=== PATIENT | male | born 1960 | race Hispanic/Latino ===

== ENCOUNTER 2022-10-22 21:36 | Emergency (ER) | payer OTHER, SELFPAY ==
[2022-10-22] VITALS (7 sets, daily range): BP systolic 135–158; BP diastolic 76–99; PULSE 61–69; RESP 13–19; TEMP 36.1; O2SAT 100
--- NOTE | ~2022-10-22 | XR_ITS ---
EXAMINATION: XR chest 2V DATE: 10/22/2022 22:20 INDICATION: Mid chest pain post fall TECHNIQUE: PA and lateral views of the chest were obtained. COMPARISON: None FINDINGS: The lungs are clear with no focal airspace opacities, pulmonary edema, pleural effusion or pneumothor ax. Heart size is normal. Tortuous thoracic aorta. Mild thoracic spondylosis. IMPRESSION: 1. No acute cardiopulmonary disease. Reviewed, dictated and finalized at location A.
--- NOTE | 2022-10-22 23:02 | ECG_ITS ---
Measurements Intervals [place] Rate: 66 P: 57 NC: 182 QRS: 1 QRSD: 107 T: 42 QT: 400 QTc: 421 Interpretive Statements SINUS RHYTHM BASELINE ARTIFACT- V3 NORMAL ECG NO PREVIOUS ECG AVAILABLE FOR COMPARISON Electronically Signed On 10-23-2022 6:58:37 CDT by Kali Aleman D.O.
[2022-10-23] VITALS: BP 128/70; PULSE 64; RESP 15
[2022-10-23 00:01] VITALS: PULSE 64; RESP 17
--- NOTE | 2022-10-23 00:01 | ED.GENADULT ---
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 Patient states that he was walking and dropped a pole that he was carrying which caused him to trip. He reports he fell onto his left side and had left frontal chest pain following this fall. Denies any head injury or LOC. Denies any further site of pain or injury. Denies numbness, weakness, shortness of breath. Related Data Allergies Allergy/AdvReac Type Severity Reaction Status Date / Time No Known Allergies Allergy Verified 10/22/22 23:05 Review of Systems Review of Systems: All systems as dictated in HPI Exam Narrative: GENERAL: Well-appearing, well-nourished, and in no acute distress. HEAD: Normocephalic, atraumatic. EYES: PERRLA and EOMI. ENT: Nares clear, no rhinorrhea or epistaxis. Mucous membranes moist. Oropharynx without tonsillar hypertrophy exudate or other lesions. NECK: Supple. No adenopathy or masses. CHEST: There is chest wall tenderness to the left upper chest. No crepitus. No respiratory distress. Clear to auscultation. No wheezes rales or rhonchi. 100% on room air. HEART: Regular rate and rhythm. No murmur heard. Normal peripheral pulses. ABDOMEN: Soft, nontender, nondistended, normal active bowel sounds. MSK: Normal range of motion. No edema. SKIN: Warm, dry, no rash. No bruising or wounds. NEURO: Alert and oriented x3. No focal deficits. PSYCH: Normal mood and affect. Course Vital Signs Vital signs: Vital Signs Temperature 97 F L 10/22/22 21:38 Pulse Rate 61 10/22/22 21:38 Respiratory Rate 18 10/22/22 21:38 Blood Pressure 158/99 H 10/22/22 21:38 Pulse Oximetry 100 10/22/22 21:38 Oxygen Delivery Room Air 10/22/22 21:38 Temperature 97 F L 10/22/22 21:38 Pulse Rate 64 10/23/22 00:01 Respiratory Rate 17 10/23/22 00:01 Blood Pressure 128/70 10/23/22 00:00 Pulse Oximetry 100 10/22/22 23:04 Oxygen Delivery Room Air 10/22/22 23:04 Medical Decision Making MDM Narrative Medical decision making narrative: This is a 61-year-old male who presents to the ED with chief complaint of left chest pain following a fall this evening. He tripped and fell on the left side. Vitals are normal. Exam does reveal tenderness of the chest wall on the left side. No crepitus. No bruising. Chest x-ray does not reveal any acute cardiopulmonary abnormalities. No overt rib fractures. I explained to the patient that I cannot reliably rule out a rib fracture without a CT scan, he would like to forego any further imaging at this point. He wants to go home and take Tylenol/motrin for pain. Incentive spirometer was given as he does have rib pain. Pt will be discharged in stable condition. Return precautions given and supportive measures discussed. Pt is understanding and agreeable with plan for discharge and follow-up with PCP. Vital Signs Vital Signs: Vital Signs Temperature 97 F L 10/22/22 21:38 Pulse Rate 61 10/22/22 21:38 Respiratory Rate 18 10/22/22 21:38 Blood Pressure 158/99 H 10/22/22 21:38 Pulse Oximetry 100 10/22/22 21:38 Oxygen Delivery Room Air 10/22/22 21:38 Temperature 97 F L 10/22/22 21:38 Pulse Rate 64 10/23/22 00:01 Respiratory Rate 17 10/23/22 00:01 Blood Pressure 128/70 10/23/22 00:00 Pulse Oximetry 100 10/22/22 23:04 Oxygen Delivery Room Air 10/22/22 23:04 ECG Data EKG #1: ECG completion date: 10/22/22 ECG completion time: 23:09 Prior ECG tracings: not available for review Interpretation: Normal sinus rhythm Rate 66 Normal QRS Normal QT No acute ischemic findings Discharge Plan Disc
== END 2022-10-23 00:46 | disposition home or self-care (01) ==
PROVIDERS: Emergency Provider Physician Assistant
DX: R07.81 Pleurodynia (principal); W01.0XXA Fall on same level from slipping, tripping and stumbling without subsequent striking against object, initial encounter
CPT/HCPCS: 71046; 93005; 99283

== ENCOUNTER 2024-11-06 13:42 | Emergency (ER) | payer MEDICARE, MEDICAID, SELFPAY ==
[2024-11-06 13:53] VITALS: BP 119/70; PULSE 65; RESP 16; TEMP 36.8; O2SAT 98
--- NOTE | 2024-11-06 14:05 | ED_ITS ---
HPI - Nausea/Vomiting/Diarrhea General Chief complaint: Nausea/Vomiting/Diarrhea Stated complaint: Abdominal Pain Time Seen by Provider: 11/06/24 13:46 Source: patient Mode of arrival: ambulatory Limitations: no limitations History of Present Illness HPI Narrative: Patient is a 63-year-old male who presents with heartburn and diarrhea for 2 days. Patient has not taken anything for symptoms. Denies any abdominal some tenderness for states his bowels are very active. Is able to eat and drink normally but then has diarrhea hours later. Denies any fever, chills, nausea, vomiting Related Data Home Medications ?Medication ?Instructions ?Recorded ?Confirmed ?Last Taken ?Type atorvastatin 40 mg tablet mg 11/06/24 Unknown History empagliflozin 25 mg tablet mg 11/06/24 Unknown Histor y (Jardiance) lisinopril 10 mg tablet mg 11/06/24 Unknown History loratadine 10 mg tablet mg 11/06/24 Unknown History metformin 1,000 mg tablet mg 11/06/24 Unknown History semaglutide 7 mg tablet (Rybelsus) mg PO 11/06/24 Unk nown History tamsulosin 0.4 mg capsule mg PO 11/06/24 Unknown Hist ory Allergies Allergy/AdvReac Type Severity Reaction Status Date / Time No Known Allergies Allergy Verified 11/06/24 13:47 Review of Systems Review of Systems: All systems reviewed & are unremarkable except as noted in HPI and below Constitutional: Constitutional: Denies body ache(s), Denies chills, Denies fatigue, Denies fever(s), Denies headache(s), Denies malaise and Denies weakness Eyes: Eyes: Denies blurry vision, Denies irritation and Denies loss of vision ENT: Denies otalgia, Denies headache(s), Denies nasal discharge, Denies sinus pain and Denies sore throat Cardiovascular: Cardiovascular: Denies chest pain, Denies irregular heart rhythm and Denies dyspnea Respiratory: Respiratory: Denies dyspnea Gastrointestinal: Gastrointestinal: Denies abdominal pain, Denies melena, Denies hematochezia, Reports heartburn, Reports diarrhea, Denies nausea and Denies vomiting Musculoskeletal: Musculoskeletal: Denies back pain, Denies myalgias and Denies arthralgias Integumentary/Breasts: Skin/Breast: Denies pruritus and Denies rash Neurologic: Denies headache(s), Denies loss of vision and Denies weakness Psychiatric: Psychiatric: Reports no additional psychiatric complaints Endocrine: Endocrine: Denies fatigue PMFSH Comments At time of signature, agree with nursing past medical, surgical, social and family history. There is no relevant family history pertinent to the presenting complaint. Exam Const: General: cooperative, healthy appearing, comfortable, no acute distress and well nourished Nutritional Appearance: well nourished Orientation/consciousness: patient oriented x3 Limitations: no limitations HENMT: Head: normal to inspection, normocephalic and atraumatic Ears: hearing grossly normal bilaterally and external ears normal Face/Nose/Sinus: Normal external nose present, normal facial exam and face symmetric Face and sinus: normal facial exam and face symmetric Mouth: Yes lip normal Eyes: General: appearance normal, both eyes and all related structures Alignment and Position: alignment normal and position normal Periorbital: periorbital findings normal Eyelids: eyelids normal Pupils: Equal, round and reactive pupils present EOM: EOMs intact bilaterally Neck: Neck: normal visual inspection, full ROM and supple Chest: Chest palpation & inspection: normal inspection of the chest Resp: Effort & Inspection: normal respiratory effort and able to speak in complete sentences Auscultation: clear to auscultation bilaterally Cardio: Rate: regular rate Rhythm: regular rhythm Heart sounds: S1 normal heart sound present and S2 normal heart sound present GI: Inspection: normal to inspection GI Palp: No abdominal tenderness, Yes Soft to palpation, No Firmness to palpation present (GI), No Tenderness to palpation present (GI) and No Guarding due to palpation present (GI) Auscultation: Hyperactive bowel sounds present Skin: General skin exam: normal color and no rashes or lesions noted Neuro: General: patient oriented x3 and moves all extremities Cranial nerves: Yes Equal, round and reactive pupils present Speech: normal speech Gait exam (Neuro): Normal gait present Extrem: General: normal to inspection, full ROM and no edema Psych: Appearance: grossly normal and well kempt Mental Status: mental status grossly normal Speech and movement: Normal speech and movement present Affect: normal affect Attitude: cooperative Thought process: Normal thought process present Course Course Emergency Course: Patient is aware of diagnosis, understands and agrees to treatment plan. Anticipatory guidance given. Patient agrees to follow-up as directed and is aware of reasons to seek care at the emergency department. Portions of this record may have been created with voice recognition software Level of Care: Express Care Visit Vital Signs Vital signs: Vital Signs Temperature 36.8 C 11/06/24 13:53 Pulse Rate 65 11/06/24 13:53 Respiratory Rate 16 11/06/24 13:53 Blood Pressure 119/70 11/06/24 13:53 Pulse Oximetry 98 11/06/24 13:53 Oxygen Delivery Room Air 11/06/24 13:53 Temperature 36.8 C 11/06/24 13:53 Pulse Rate 65 11/06/24 13:53 Respiratory Rate 16 11/06/24 13:53 Blood Pressure 119/70 11/06/24 13:53 Pulse Oximetry 98 11/06/24 13:53 Oxygen Delivery Room Air 11/06/24 13:53 Reviewed MDM - Nausea/Vomiting/Diarrhea MDM Narrative Medical decision making narrative: Will send in medication to treat both heartburn and abdominal cramping. Referred patient to over the counter Imodium. Pt well hydrated appearing, in no respiratory distress, hemodynamically stable. Recommend supportive care. The patient is stable at time of discharge the clinical impression was discussed and the patient was given the opportunity to ask questions, which were addressed as completely as possible given the inf ormation available at present. Anticipatory guidance and return to care precautions were discussed and the importance of primary care follow-up was stressed and encouraged. The patient voiced understanding of the plan, indications to return, and the need for follow-up. Exam findings show no acute concerns or changes Patient is appropriate for outpatient treatment and follow-up. Differential Diagnosis Differential diagnosis: Likely food poisoning, gastroenteritis and dehydration Medical Records Attestation: I reviewed the patient's medical records. Discharge Plan Discharge Clinical Impression: Gastroenteritis, Acid reflux Patient Disposition: Home Condition: Stable Instructions: Gastritis (ED), Gastroenteritis (ED) Additional Instructions: Take medication as prescribed. You may use [id number] Imodium to decrease diarrhea episodes. Stay hydrated. Take small sips of fluid containing electrolytes frequently(Body [place], Gatorade, Powerade, liquid IV). Eat small meals that her very bland including bananas, applesauce, rice, toast, boiled or grilled chicken, soup. Do not eat anything fried, spicy or overly acidic. You should go to the hospital if you experience return of persistent nausea and vomiting that does not resolve and does not allow you to tolerate any food or fluids, persistent fevers for greater than 2-3 more days, increasing abdominal pain that persists despite medications, persistent diarrhea, dizziness, syncope (fainting), or for any other concerns. [place] los medicamentos seg?n lo prescrito. Puede usar Imodium de venta laura para disminuir los episodios de diarrea. Mant?ngase hidratado. [place] romario?os sorbos de l?quidos con electrolitos con frecuencia (Body [place], Gatorade, Powerade, wan l?quido). Coma comidas romario?as zabrina muy blandas, ubaldo pl?tanos, pur? de manzana, arroz, tostadas, guillermo hervido o a la plancha, sopa. No coma nada frito, picante ni demasiado ?cido. Debe acudir al hospital si experimenta n?useas y v?mitos persistentes que no se alivian y no le permiten tolerar alimentos ni l?quidos, fiebre persistente xavier m?s de 2 o 3 d?as, aumento del dolor abdominal que persiste a pesar de los medicamentos, diarrea persistente, mareos, s?ncope (desmayo) o cualquier otra inquietud. Patient Language: German Prescriptions: New dicyclomine 20 mg tablet 20 mg PO QID 7 Days Qty: 28 0RF omeprazole 20 mg capsule,delayed release(DR/EC) 20 mg PO DAILY 14 Days Qty: 14 0RF No Action atorvastatin 40 mg tablet tamsulosin 0.4 mg capsule PO metformin 1,000 mg tablet lisinopril 10 mg tablet loratadine 10 mg tablet Jardiance 25 mg tablet Rybelsus 7 mg tablet PO Follow-up/Referrals: Dong Oliver MD [Physician, Family Practice] - 3 Days Time of Disposition: 14:10
== END 2024-11-06 14:15 | disposition home or self-care (01) ==
PROVIDERS: Emergency Provider Nurse Practitioner Family
DX: K52.9 Noninfective gastroenteritis and colitis, unspecified (principal); K21.9 Gastro-esophageal reflux disease without esophagitis; E78.00 Pure hypercholesterolemia, unspecified; N40.0 Benign prostatic hyperplasia without lower urinary tract symptoms; E11.9 Type 2 diabetes mellitus without complications; Z79.84 Long term (current) use of oral hypoglycemic drugs
CPT/HCPCS: 99213; G0463